=== PATIENT | male | born 1965 | race American Indian/Alaskan Native ===

== ENCOUNTER 2016-11-19 15:28 | Inpatient (IN) | payer OTHER ==
[~2016-11-19] VITALS: Ht 170.2 cm; Wt 103.2 kg
[~2016-11-19 15:28] MED LIST: APIX5TAB PO; ATOR40TA78 PO; CARV6.252 PO; DIGO250T12 PO; FURO40TA6 PO; LOSA25TA5 PO; MULT-516 PO; RANI150T4 PO
[2016-11-19] MEDS ORDERED: SODIUM CHLORIDE 0.9% 1,000 ML IV ONE (15:49)
[2016-11-19] MEDS ORDERED: SPIR25TA3 PO (15:59)
[2016-11-19] MEDS ORDERED: ASPIRIN 81 MG TABLET CHEW PO ONE (16:00)
[2016-11-19] MEDS ORDERED: SODIUM CHLORIDE FLUSH 10ML SYR IVF ONE ×2 (16:00→18:30)
[2016-11-19 16:21] LABS: ASPARTATE AMINO TRANSFERASE 27 U/L (15-37); BLOOD UREA NITROGEN 10 mg/dL (7-18)
[2016-11-19 16:28] LABS: IS PT STATUS REG ER OR PRE ER? YES
[2016-11-19] MEDS ORDERED: ASPIRIN 81 MG TABLET CHEW ONE (16:41)
[2016-11-19 16:49] LABS: ANISOCYTOSIS 2+; MICROCYTOSIS 1+
[2016-11-19 16:50] LABS: OVALOCYTES 2+; POLYCHROMASIA 1+
[2016-11-19] MEDS ORDERED: MORPHINE SULFATE 4 MG/ML, 1ML IVPush PRN (18:00)
[2016-11-19] MEDS ORDERED: HYDROcodone/APAP 5/325 TABLET PO PRN (18:00)
[2016-11-19] MEDS ORDERED: POLYETHYLENE GLYCOL 17 GM PACKET PO PRN (18:00)
[2016-11-19] MEDS ORDERED: ONDANSETRON ODT 4 MG PO PRN (18:00)
[2016-11-19] MEDS ORDERED: LABETALOL 5MG/ML, 20ML IVPush PRN (18:00)
[2016-11-19] MEDS ORDERED: ONDANSETRON 2MG/ML, 2ML IVPush PRN (18:00)
[2016-11-19 18:29] LABS: TOTAL IRON BINDING CAPACITY 436 mcg/dL (250-450)
[2016-11-19 20:57] VITALS: BP 160/93
[2016-11-19] MEDS: CARVEDILOL 3.125 MG TABLET PO SCH (21:43)
[2016-11-19] MEDS: ENOXAPARIN 40 MG/0.4 ML SQ SCH (21:44)
[2016-11-19] MEDS: SODIUM CHLORIDE 0.9% 1,000 ML IV SCH (21:46)
[2016-11-19 23:41] LABS: IS PT STATUS REG ER OR PRE ER? NO
[2016-11-20 01:33] VITALS: BP 152/93
[2016-11-20 05:07] LABS: ASPARTATE AMINO TRANSFERASE 19 U/L (15-37); BLOOD UREA NITROGEN 14 mg/dL (7-18)
[2016-11-20] MEDS: SODIUM CHLORIDE 0.9% 1,000 ML IV SCH ×2 (05:45→09:41)
[2016-11-20] MEDS: ASPIRIN 81 MG TABLET EC PO SCH (05:45)
[2016-11-20 05:54] LABS: IS PT STATUS REG ER OR PRE ER? NO
[2016-11-20 06:32] LABS: ANISOCYTOSIS 1+; OVALOCYTES 1+; POLYCHROMASIA 1+
[2016-11-20 07:19] VITALS: BP 122/71
[2016-11-20] MEDS ORDERED: REGADENOSON 0.4 MG/5 ML SYRINGE ONE (08:10)
[2016-11-20] MEDS: SPIRONOLACTONE 25 MG TABLET PO SCH (10:58)
[2016-11-20] MEDS: CARVEDILOL 3.125 MG TABLET PO SCH ×2 (10:58→22:06)
[2016-11-20] MEDS: SENNA/DOCUSATE TABLET PO SCH (10:59)
[2016-11-20] MEDS: MULTIVITAMIN 1 TABLET PO SCH (10:59)
[2016-11-20] MEDS ORDERED: IRON SUCROSE COMPLEX 100MG/5ML IV ONE (11:00)
[2016-11-20] MEDS ORDERED: MAGNESIUM SULFATE PMX 2GM/50ML 50 ML IV ONE (11:00)
[2016-11-20] MEDS ORDERED: CYANOCOBALAMIN 1,000 MCG/ML, 1ML IM ONE (11:00)
[2016-11-20 13:08] VITALS: BP 162/84
[2016-11-20] MEDS: ENOXAPARIN 40 MG/0.4 ML SQ SCH (16:53)
[2016-11-20 22:00] VITALS: BP 152/89
[2016-11-21 01:45] VITALS: BP 159/102
[2016-11-21] MEDS: ASPIRIN 81 MG TABLET EC PO SCH (06:17)
[2016-11-21 07:53] VITALS: BP 132/76
[2016-11-21] MEDS: SPIRONOLACTONE 25 MG TABLET PO SCH (08:55)
[2016-11-21] MEDS: MULTIVITAMIN 1 TABLET PO SCH (08:56)
[2016-11-21] MEDS: SENNA/DOCUSATE TABLET PO SCH (08:56)
[2016-11-21] MEDS ORDERED: IRON SUCROSE COMPLEX 100MG/5ML IV SCH (09:00)
[2016-11-21] MEDS: CARVEDILOL 3.125 MG TABLET PO SCH (09:49)
[2016-11-21 13:05] VITALS: BP 163/98
[2016-11-21 13:54] VITALS: BP 153/88
[2016-11-21] MEDS ORDERED: ASPI-621 PO (14:23)
[2016-11-21] MEDS ORDERED: CYAN10005 PO (14:23)
[2016-11-21] MEDS ORDERED: FERR325T20 PO (14:24)
[2016-11-22] MEDS ORDERED: CYANOCOBALAMIN 1,000 MCG TABLET PO SCH (09:00)
== END 2016-11-21 17:34 | disposition home or self-care (01) | DRG 392 ==
LOC: ED 16:33 → EDIP 17:21 → 5SO 19:04
PROVIDERS: ADMIT Hospitalist; ATTEND Hospitalist
DX: K21.9 Gastro-esophageal reflux disease without esophagitis (principal); I42.9 Cardiomyopathy, unspecified; I50.40 Unspecified combined systolic (congestive) and diastolic (congestive) heart failure; D68.69 Other thrombophilia; D50.9 Iron deficiency anemia, unspecified; E53.8 Deficiency of other specified B group vitamins; E66.01 Morbid (severe) obesity due to excess calories; G47.33 Obstructive sleep apnea (adult) (pediatric); I11.0 Hypertensive heart disease with heart failure; I27.2 Other secondary pulmonary hypertension; I48.91 Unspecified atrial fibrillation; Z82.49 Family history of ischemic heart disease and other diseases of the circulatory system; Z87.891 Personal history of nicotine dependence; Z98.84 Bariatric surgery status; Z88.8 Allergy status to other drugs, medicaments and biological substances; Z68.35 Body mass index [BMI] 35.0-35.9, adult
CPT/HCPCS: 36415; 71010; 78452; 80053; 80061; 82607; 82728; 82746; 83540; 83550; 83735; 83880; 84100; 84439; 84443; 84484; 85025; 85379; 85610; 85730; 93005; 93017; 99285; C8929; J1650; J1756; J2785; A9502; C9898; J3420; J3475; J7030